=== PATIENT | male | born 1965 | race Caucasian/White ===

== ENCOUNTER 2017-03-25 15:09 | Emergency (ER) | payer BC ==
[2017-03-25] MEDS ORDERED: ceFAZolin IN SWFI 2 GM/20 ML SYRINGE IVP ONE (15:25)
[2017-03-25] MEDS ORDERED: MORPHINE SULFATE 5 MG/ML SYRINGE IVP STA (15:27)
--- NOTE | 2017-03-25 16:22 | ED ---
Wound/Laceration HPI - General Chief Complaint: Wound/Laceration Stated Complaint: hand lac-table saw Time Seen by Provider: 03/25/17 15:12 Source: patient, RN notes reviewed, old records reviewed Mode of arrival: ambulatory Limitations: no limitations - History of Present Illness Initial Comments: This patient is a 51-year-old male presents emergency Department chief complaint of left hand laceration. Patient reports that he was using a table saw and cut the distal tip of his fourth finger, has lacerations over the fifth and third finger and has severe pain within the second finger. He reports that he has no injury to the thumb. He reports that he has range of motion in the fingers 3 through 5. He reports severe pain and decreased range of motion of the second digit. Patient states that his tetanus is up-to-date. He reports that he has no other injuries at this time. His tetanus is up to date. Patient is left handed. - Related Data Home Medications Medication Instructions Recorded Confirmed Acetaminophen Tab [Tylenol Tab] 500 mg PO Q4H 03/25/17 03/25/17 Previous Rx's Medication Instructions Recorded Cephalexin [Keflex] 500 mg PO QID #40 cap 03/25/17 HYDROcodone/APAP 10-325MG [[place] 1 tab PO Q4HR PRN #20 tab 03/25/17 10-325] Ondansetron Odt [Zofran Odt] 4 mg PO Q8HR PRN #20 tab 03/25/17 Allergies Allergy/AdvReac Type Severity Reaction Status Date / Time No Known Allergies Allergy Verified 03/25/17 15:30 Review of Systems ROS Statement: Those systems with pertinent positive or pertinent negative responses have been documented in the HPI. ROS Other: All systems not noted in ROS Statement are negative. Past Medical History Past Medical History: No Reported History History of Any Multi-Drug Resistant Organisms: None Reported Past Surgical History: No Surgical Hx Reported Past Psychological History: No Psychological Hx Reported Smoking Status: Never smoker Past Alcohol Use History: None Reported Past Drug Use History: None Reported General Exam - General Exam Comments Initial Comments: This is a 51 year old male, appears in discomfort and is anxious. Limitations: no limitations General appearance: alert, in no apparent distress Head exam: Present: atraumatic, normocephalic, normal inspection Eye exam: Present: normal appearance, PERRL, EOMI. Absent: scleral icterus, conjunctival injection, periorbital swelling ENT exam: Present: normal exam, mucous membranes moist Neck exam: Present: normal inspection. Absent: tenderness, meningismus, lymphadenopathy Respiratory exam: Present: normal lung sounds bilaterally. Absent: respiratory distress, wheezes, rales, rhonchi, stridor Cardiovascular Exam: Present: regular rate, normal rhythm, normal heart sounds. Absent: systolic murmur, diastolic murmur, rubs, gallop, clicks Left Forearm Wrist exam: Present: normal inspection, full ROM Hand Wrist exam: Present: swelling, laceration. Absent: normal inspection Hand L/R Back: 1 - swelling, Limited ROM due to pain 2 - abrasion 3 - laceration 2 cm involvming nailbed 4 - 4 cm laceration and avulsion of lateral aspect of the finger tip. 1/2 of nail is missing. 5 - laceration invovling nail bed, 2 cm Neurosensory exam: Present: radial nerve intact, ulnar nerve intact, median nerve intact Vascular: Present: normal capillary refill Back exam: Present: normal inspection Skin exam: Present: warm, dry, intact, normal color. Absent: rash Course Vital Signs 03/25/17 03/25/17 03/25/17 15:10 16:00 17:00 Temperature 97.6 F Pulse Rate 68 77 78 Respiratory 18 20 20 Rate Blood Pressure 148/78 142/76 140/78 O2 Sat by Pulse 98 99 98 Oximetry 03/25/17 18:11 Temperature 98.7 F Pulse Rate 87 Respiratory 18 Rate Blood Pressure 148/87 O2 Sat by Pulse 99 Oximetry Procedures - Laceration Laceration #1 Site: upper extremity (left distal 2nd digit) Size (cm): 2 Description: irregular Depth: simple, single layer Anesthetic Used: lidocaine 1% Anesthesia Technique: nerve block Amount (mls): 4 Pre-repair: wound explored, irrigated extensively Type of Sutures: nylon Size of Sutures: 5-0 Number of Sutures: 4 Technique: simple, interrupted Patient Tolerated Procedure: well, no complications Laceration #2 Indication: laceration Site: upper extremity (left 3rd digit) Size (cm): 2 Description: irregular Depth: simple, single layer Sedation/Analgesia: midazolam Anesthetic Used: lidocaine 1% Anesthesia Technique: nerve block Amount (mls): 4 Pre-repair: wound explored, irrigated extensively Type of Sutures: nylon Size of Sutures: 5-0 Number of Sutures: 2 Technique: simple, interrupted Patient Tolerated Procedure: well, no complications - Orthopedic Splinting/Casting Injury #1 Side: left Upper Extremity Injury Location: hand, finger Upper Extremity Immobilizer: volar splint ( short), Dav wrap, synthetic pre- padded splint Medical Decision Making - Medical Decision Making This is a 51-year-old male presents with left hand injury due to a tablesaw. Patient has lacerations over digits 23 and five. He has an avulsion of the distal 1/2 of the fourth digit. Patient wounds were thoroughly irrigated. He hasEvidence of comminuted fracture within the proximal phalanx of the second digit. Patient reports his tetanus is up-to-date. IV was started and patient received IV and pain medicine and nausea medicine. Patient's case discussed with orthopedics associates. They recommended gel foam Over the distal tip of the fourth digit due to no skin being present to sew close. I did attempt to repair lacerations over digits two and three. Laceration over digit five is very superficial. He has range of motion in all of the fingers except the second finger.Patient will be following up with orthopedic associates tomorrow morning. He was placed in a volar splint as well due to the finger fracture. I discussed [place] in three minutes. Patient was discharged with anabiotic's, pain medicine, and nausea medicine. - Radiology Data Radiology results: report reviewed Comminuted nondisplaced intra-articular fracture of the proximal phalanx of the second digit. There's lacerations and soft tissue swelling of the second digit report digits in questionably the fifth digit of the left hand. Partial osseous and soft tissue absence in the distal talked in overlying soft tissues of the fourth digit. Disposition Clinical Impression: Open fracture of finger of left hand, Finger laceration Disposition: HOME SELF-CARE Condition: Good Instructions: Finger Fracture (ED) Additional Instructions: Patient has a follow-up with Dr. Dixon in the morning. Take the medications as prescribed. Return to the emergency department if any alarming signs or symptoms occur. Prescriptions: Cephalexin [Keflex] 500 mg PO QID #40 cap HYDROcodone/APAP 10-325MG [[place] 10-325] 1 tab PO Q4HR PRN #20 tab PRN Reason: Pain Ondansetron Odt [Zofran Odt] 4 mg PO Q8HR PRN #20 tab PRN Reason: Nausea Referrals: None,Stated [Primary Care Provider] - 1-2 days Domenico Dixon, [Doctor of Osteopathic Medicine] - 1-2 days Time of Disposition: 17:52
--- NOTE | 2017-03-25 16:25 | XR ---
EXAMINATION TYPE: XR hand complete LT DATE OF EXAM: 03/25/2017 CLINICAL HISTORY: Table saw injury with multiple finger lacerations TECHNIQUE: Frontal, lateral and oblique images of the left hand are obtained. COMPARISON: None. FINDINGS: There is a comminuted, overall nondisplaced and intra-articular fracture of the proximal ph alanx of the second digit involving the proximal metadiaphysis and mid diaphysis with overlying soft tissue swelling. Lacerations are seen of the second, third, and fourth digit with possible laceration of the fifth digit. There is absence of a portion of the chest of the fourth digit at its radial asp ect. No additional fracture of the left hand is seen. Soft tissue swelling is noted of the second thr ough fifth digits. No radiopaque foreign body although there are some limitation given overlying gauz e. IMPRESSION: 1. Comminuted, nondisplaced intra-articular fracture of the proximal phalanx of the second digit. 2. Lacerations and soft tissue swelling of the second through fourth digits and questionably of the f ifth digit of the left hand. 3. Partial osseous and soft tissue absence of the distal tuft and overlying soft tissues of the fourt h digit.
[2017-03-25] MEDS ORDERED: ONDANSETRON 4 MG/2 ML VIAL IVP STA (16:57)
[2017-03-25] MEDS ORDERED: GELATIN SPONGE,ABSORB (SMALL) 1 EACH SPONGE TOPICAL STA (17:19)
[2017-03-25 22:44] VITALS: BP 148/87; PULSE 87; RESP 18; TEMP 98.7
== END 2017-03-25 18:11 | disposition home or self-care (01) ==
LOC: EC 15:09
DX: S62.611B Displaced fracture of proximal phalanx of left index finger, initial encounter for open fracture (principal); S61.211A Laceration without foreign body of left index finger without damage to nail, initial encounter; S61.213A Laceration without foreign body of left middle finger without damage to nail, initial encounter; S61.215A Laceration without foreign body of left ring finger without damage to nail, initial encounter; S61.217A Laceration without foreign body of left little finger without damage to nail, initial encounter; Z79.899 Other long term (current) drug therapy; W45.8XXA Other foreign body or object entering through skin, initial encounter
CPT/HCPCS: 73130; 99284; 12002; 29125; 96374; 96375 ×2; J2405; J2274; J0690

== ENCOUNTER → 2020-10-13 | Day surgery (SDC) | payer BC ==
[2020-10-12 09:11] VITALS: BMI 24.3
[~2020-10-13] MED LIST: LACTATED RINGERS 1,000 ML IV SCH; LIDOCAINE 1% (10MG/ML) FOR IV START INTRADERMA PRN; LIDOCAINE 1% INJ 10MG/ML (20 ML MDV) ONE; PROPOFOL 10 MG/ML 20 ML VIAL IV ONE
[2020-10-13 08:13] VITALS: TEMP 96.9
--- NOTE | 2020-10-13 09:03 | P.PCN ---
Date of Procedure: 10/13/20 Procedure(s) Performed: BRIEF HISTORY: Patient is a 54-year-old, pleasant, white male scheduled for an upper endoscopy as a part of evaluation of intermittent dysphagia to solids for the last 2 years duration. He has these episodes once or twice a month. Denies any heartburn. Post-odynophagia.. PROCEDURE PERFORMED: Esophagogastroduodenoscopy with biopsy and dilation. PREOPERATIVE DIAGNOSIS: Intermittent dysphagia to solids for the last 2 years duration. IV sedation per anesthesia. PROCEDURE: After informed consent was obtained, the patient was brought into the endoscopy unit. IV sedation was administered by Anesthesia under continuous monitoring. Initially the Olympus GIF-140 video endoscope was inserted into the mouth. Esophagus intubated without any difficulty. It was gradually advanced into the stomach and duodenum and carefully examined. The bulb and the second part of the duodenum appeared normal. The scope at this time was withdrawn to the stomach, adequately insufflated with air, and upon careful examination, mucosa of the antrum, body, cardia and the fundus appeared normal. The scope was then withdrawn into the esophagus. The GE junction was located at 39 cm from the incisors. There was a distal esophageal esophageal stricture identified that was dilated using 15 and 16.5 mm TTS balloon in a sequential fashion for 60 seconds. There was some oozing identified and hence further dilation was not performed. The mucosa of the mid and distal esophagus had thickened esophageal folds suspicious for eosinophilic esophagitis and biopsies were done from this area. The rest of the esophagus appeared normal and the patient tolerated the procedure well. IMPRESSION: 1. Distal esophageal stricture status post balloon dilation using 15 and 16.5 mm TTS balloon as described above. 2. Thickened mid and distal esophageal folds suspicious for eosinophilic esophagitis status post biopsies. RECOMMENDATIONS: The findings of this examination were discussed with the patient as well as his family. He was advised to remain on a clear liquid diet for lunch today. Await biopsy results. Follow up in office in 4 weeks.
[2020-10-13 09:09] VITALS: RESP 17
[2020-10-13 09:16] VITALS: BP 117/75; PULSE 65
== END | disposition home or self-care (01) ==
LOC: ORWHC2ENDO 07:58
PROVIDERS: ATTEND Internal Medicine Gastroenterology
DX: K22.2 Esophageal obstruction (principal); K20.0 Eosinophilic esophagitis; R13.10 Dysphagia, unspecified; F17.200 Nicotine dependence, unspecified, uncomplicated
CPT/HCPCS: 43249; 43239; 88305; J2001; J2704; C1726